=== PATIENT | female | born 1965 | race Caucasian/White ===

== ENCOUNTER 2022-02-01 19:11 | Inpatient (IN) | payer MEDICARE, OTHER ==
[~2022-02-01] VITALS: Ht 170.2 cm; Wt 62.1 kg
--- NOTE | 2022-02-01 19:14 | NUR ---
Dr. Denson examining patient at [facility].
[2022-02-01] MEDS ORDERED: VANCOMYCIN 1,000 MG in DEXTROSE 5% 250 ML IV ONE (19:20)
[2022-02-01] MEDS ORDERED: PIPERACILLIN/TAZOBACTAM 3.375 GM in DEXTROSE 5% 50 ML IV ONE (19:20)
[2022-02-01 19:25] VITALS: BP 100/60
[2022-02-01] MEDS ORDERED: fentaNYL citrate 0.05 MG/ML VIAL IVP ONE (19:25)
--- NOTE | 2022-02-01 19:30 | NUR ---
PT MOVED TO BED 10 VIA [facility]
--- NOTE | 2022-02-01 19:33 | NUR ---
BIBA to bed 10
[2022-02-01] MEDS ORDERED: VANCOMYCIN 1,000 MG VIAL ONE (19:42)
[2022-02-01] MEDS ORDERED: PIPERACILLIN/TAZOBACTAM 3.375 GM VIAL IV ONE (19:43)
--- NOTE | 2022-02-01 19:49 | NUR ---
FENTANYL GIVEN. PAIN 10
--- NOTE | 2022-02-01 19:50 | NUR ---
56 YO F BIBA from home c/o respiratory distress/difficulty breathing + nausea, vomiting dark black emesis x 3 days, diarrhea. pt sating at 96% on room air currently. Pt receives nightly dialysis, last treatment last night with unknown volume removed. BP 100 palpated PMH: renal disease, HTN, peritoneal dialysis with hypotension Meds: atorvastatin, ASA 81, cinacalcet, clopidogrel, calcium, folic acid, vitamin D3, B-complex, ducolax NKDA
--- NOTE | 2022-02-01 20:00 | NUR ---
C/O OF PAIN NO RELIF WITH FENTANYL
--- NOTE | 2022-02-01 20:01 | NUR ---
IV ABX STARTED
[2022-02-01] MEDS ORDERED: PANTOPRAZOLE 40 MG INJ VIAL IVP ONE (20:10)
[2022-02-01] MEDS ORDERED: HYDROmorphone PFS 2 MG/ML SYR IVP ONE (20:15)
[2022-02-01] MEDS ORDERED: ONDANSETRON 4 MG/2 ML VIAL ONE (20:25)
[2022-02-01] MEDS ORDERED: ONDANSETRON 4 MG/2 ML VIAL IVP ONE (20:30)
--- NOTE | 2022-02-01 21:00 | NUR ---
DILAUDID GIVEN PAIN 04/25
[2022-02-01 21:14] LABS: BASOPHILS % (AUTO) 0.4 % (0.0-2.0); EOSINOPHILS % (AUTO) 0.1 % (0.0-4.0); HEMATOCRIT 39.3 % (36-48); HEMOGLOBIN 12.9 g/dL (12.0-16.0); LYMPHOCYTES # (AUTO) 0.6 K/uL (2.5-16.5); LYMPHOCYTES % (AUTO) 6.2 % (20.5-51.1); MEAN CORPUSCULAR HEMOGLOBIN 28 pg (27-31); MEAN CORPUSCULAR HGB CONC 33 g/dL (33-37); MEAN CORPUSCULAR VOLUME 86.4 fL (80-94); MONOCYTES # (AUTO) 0.3 K/uL (0.8-1.0); NEUTROPHILS % (AUTO) 90.3 % (42.2-75.2); PLATELET COUNT (AUTO) 514 K/uL (140-450); RED BLOOD CELL COUNT(AUTO) 4.54 MIL/uL (4.20-5.40); RED CELL DISTRIBUTION WIDTH 15.7 % (11.6-13.7)
[2022-02-01 21:17] LABS: ALBUMIN 1.8 g/dL (3.4-5.0); ANION GAP 29.2 (8-16); ASPARTATE AMINOTRANSFERASE 10 U/L (15-37); CARBON DIOXIDE 15.6 mmol/L (21-32); CHLORIDE 93 mmol/L (98-107); GFR ARICAN-AMERICAN 3 mL/min (>90); GLUCOSE 200 mg/dL (74-106); SODIUM SERUM 135 mmol/L (136-145); TOTAL BILIRUBIN 0.6 mg/dL (0.0-1.0)
[2022-02-01 21:18] LABS: POTASSIUM 2.8 mmol/L (3.5-5.1)
[2022-02-01 21:20] LABS: CREATININE 14.4 mg/dL (0.6-1.3); UREA NITROGEN, BLOOD 86 mg/dL (7-18)
[2022-02-01 21:44] LABS: PROTHROMBIN TIME 11.4 secs (10.8-13.4)
--- NOTE | 2022-02-01 22:22 | NUR ---
PT POSITIONED FOR COMFORT. NO COMPLAINTS AT THIS TIME. PAIN 09/23
--- NOTE | 2022-02-01 23:23 | NUR ---
Critical values 2.8 potassium, 86 bun, 14.4 creatinine, lactic acid 3.3
[2022-02-01] MEDS ORDERED: ATOR10TA PO (23:37)
[2022-02-01] MEDS ORDERED: ASPI-1129 PO (23:37)
[2022-02-01] MEDS ORDERED: SEN30 PO (23:37)
[2022-02-01] MEDS ORDERED: [UNRECOGNIZED DRUG - CODE] PO (23:37)
[2022-02-01] MEDS ORDERED: CLOP75TA55 PO (23:37)
--- NOTE | 2022-02-01 23:59 | NUR ---
PT EXPRESSES NAUSEA BUT REFUSES ANTI-NAUSEA MEDICATION
[2022-02-02] VITALS (22 sets, daily range): BP systolic 56–189; BP diastolic 36–99
[2022-02-02] MEDS ORDERED: ONDANSETRON 4 MG/2 ML VIAL IM/IVP PRN
[2022-02-02] MEDS ORDERED: DOCUSATE SODIUM 100 MG GELCAP PO PRN
[2022-02-02] MEDS ORDERED: INSULIN LISPRO SLIDING SCALE 100 UNITS/ML VIAL SUBQ PRN
[2022-02-02] MEDS ORDERED: HYDROcodone/APAP 5/325 MG 1 TAB TAB PO PRN
[2022-02-02] MEDS ORDERED: DEXTROSE 50% 50 ML SYR IVP PRN
[2022-02-02] MEDS ORDERED: VANCOMYCIN PER PHARMACY MC PRN
[2022-02-02] MEDS ORDERED: POTASSIUM CHLORIDE 40 MEQ, LIDOCAINE MPF 1% 25 MG in NACL 0.9% 250 ML IV PRN ×3
[2022-02-02] MEDS ORDERED: ACETAMINOPHEN 325 MG TAB PO PRN
[2022-02-02] MEDS ORDERED: MAG SULF 2000 MG/WATER PREMIX 50 ML IV PRN
--- NOTE | 2022-02-02 00:50 | NUR ---
RECEIVED PT. FROM ER, AWAKE AND ABLE TO EXPRESS HER NEEDS. ON ROOM AIR. IV TO LEFT FOREARM WITH NO IVF RUNNING. SR ON MONITOR. LUNGS CLEAR. ABDOMEN SOFT, NON-TENDER. NO PAIN STATED AT THIS TIME. JUST WANT TO POSITION HER BACK AND SIT UP. PLACED HOB TO 90 DEGREES SHE REQUESTED. WILL DO ASSESSMENT.
--- NOTE | 2022-02-02 00:50 | NUR ---
Patient will be admitted to care of BRENDON. Admited to ICU. Will go to room 6. Report to COLLINS.
[2022-02-02] MEDS: DEXT 5% /NACL 0.9% 1,000 ML IV SCH ×2 (01:00→17:40)
--- NOTE | 2022-02-02 01:00 | NUR ---
CHECKED AND ASSESSED SKIN, TOOK A PICTURE OF WOUNDS AND CHANGED DRESSING.
[2022-02-02 01:31] LABS: MAGNESIUM 1.8 mg/dL (1.8-2.4); PHOSPHORUS 8.8 mg/dL (2.5-4.9)
--- NOTE | 2022-02-02 03:45 | NUR ---
PT. ZOSYN IVPB SCHEDULE FOR 0000 DOCUMENTED NOT GIVEN, DUE TO PT. IN ER DURING THAT TIME.
--- NOTE | 2022-02-02 04:00 | NUR ---
TAKEN PT. TEMP AND IT'S 90.8. PT. REFUSED TO COVER, WANTS TO SIT AT THE SIDE OF THE BED. WILL CONT. TO MONITOR.
--- NOTE | 2022-02-02 04:22 | NUR ---
LAB AT THE BEDSIDE FOR THE BLOOD DRAW.
[2022-02-02] MEDS: MORPHINE SULFATE 2 MG/ML SYR IVP PRN ×2 (04:38→10:51)
[2022-02-02 06:10] LABS: BASOPHILS # (AUTO) 0.1 K/uL (0.00-0.22); BASOPHILS % (AUTO) 0.2 % (0.0-2.0); EOSINOPHILS % (AUTO) 0.1 % (0.0-4.0); HEMATOCRIT 37.3 % (36-48); HEMOGLOBIN 11.8 g/dL (12.0-16.0); LYMPHOCYTES % (AUTO) 4.6 % (20.5-51.1); MEAN CORPUSCULAR HEMOGLOBIN 28 pg (27-31); MEAN CORPUSCULAR HGB CONC 32 g/dL (33-37); MEAN CORPUSCULAR VOLUME 87.2 fL (80-94); MONOCYTES # (AUTO) 0.7 K/uL (0.8-1.0); MONOCYTES % (AUTO) 3.1 % (1.7-9.3); NEUTROPHILS # (AUTO) 19.7 K/uL (1.8-7.7); PLATELET COUNT (AUTO) 468 K/uL (140-450); RED BLOOD CELL COUNT(AUTO) 4.28 MIL/uL (4.20-5.40); RED CELL DISTRIBUTION WIDTH 15.5 % (11.6-13.7); WHITE BLOOD COUNT (AUTO) 21.4 K/uL (4.8-10.8)
[2022-02-02] MEDS ORDERED: PIPERACILLIN/TAZOBACTAM 2.25 GM VIAL IV ONE (06:37)
[2022-02-02] MEDS: PIPERACILLIN/TAZOBACTAM 2.25 GM in DEXTROSE 5% 50 ML IV SCH ×5 (06:45→19:08)
[2022-02-02 06:50] LABS: ANION GAP 29.4 (8-16); CARBON DIOXIDE 15.6 mmol/L (21-32)
[2022-02-02 07:33] LABS: CREATININE 14.5 mg/dL (0.6-1.3)
--- NOTE | 2022-02-02 07:35 | NUR ---
RECEIVED PATIENT FROM MGMT CONSULTANT NURSE FOR CONTINUITY OF CARE. PT IS AOX2. RESPIRATIONS EVEN AND UNLABORED. ON ROOM AIR AND NO DISTRESS NOTED. SKIN IS WARM, DRY, AND INTACT. IV SITE ON LFA 22 G INFUSING FLUIDS ORDERED. ABD IS SOFT, FLAT, AND NON-DISTENDED. BOWEL SOUNDS ACTIVE IN ALL QUADRANT. HAS PERITONEAL DIALYSIS CATHETER IN PLACE. PLAN OF CARE DISCUSSED. SAFETY PRECAUTIONS IN PLACE. CALL LIGHT WITHIN REACH. WILL CONTINUE TO MONITOR.
--- NOTE | 2022-02-02 07:42 | NUR ---
ALL CARE ENDORSED TO DAY SHIFT RN FOR CONTINUITY OF CARE.
[2022-02-02] MEDS ORDERED: NOREPINEPHRINE 4 MG in DEXTROSE 5% 250 ML IV PRN (08:05)
[2022-02-02] MEDS: BLOOD GLUCOSE MONITORING 1 DEV DEV FS SCH ×4 (08:11→21:08)
--- NOTE | 2022-02-02 08:30 | NUR ---
ALL SCHEDULED MEDS GIVEN. PT IS STABLE. NO DISTRESS NOTED. WILL CONTINUE TO MONITOR.
--- NOTE | 2022-02-02 08:58 | NUR ---
PATIENT HAS BEEN SCREENED AND CATEGORIZED HIGH NUTRITION RISK. PATIENT WILL BE SEEN WITHIN 1-2 DAYS OF ADMISSION. / [address]
[2022-02-02] MEDS ORDERED: PANTOPRAZOLE 40 MG INJ VIAL IVP SCH (09:00)
--- NOTE | 2022-02-02 10:00 | NUR ---
DR. KIM AT PATIENT'S BEDSIDE.
--- NOTE | 2022-02-02 10:35 | NUR ---
DC PLANNING: THE PATIENT ADMITTED FROM HOME WITH C/O SEVERE ABDOMINAL PAIN AND SOB. H/O ESRD WITH PERITONEAL DYALYSIS, DM AND HTN. DIALYSATE NOTED AROUND THE PD CATHETER, DRESSING TO RIGHT LE WHICH APPEARED TO BE A TMA. WBC'S IN ED 10, TODAY SPIKED TO 21.4. CR. 14.4, TROPONIN 296, LACTIC ACID 3.3, ANION GAP 29.2.FINDINGS OF METABOLIC ACIDOSIS, POSSIBLE NSTEMI. CTA BD/PELVIS SHOWS PNEUMOPERITONEUM AND ASCITES, MESENTERIC EDEMA, COLONIC DIVERTICULOSIS. GIVEN ZOSYN, VANCO, FENTANYL, DILAUDID AND ZOFRAN IN ED, CONTINUED ON ZOSYN AND VANCO. ALSO ON LEVOPHED GTT AT 2-4 MCG, B/P 70/41. PATIENT WITH NOTED ALOC TODAY. ADY SPOKE WITH THE PATIENTS SONS ANTONIO AND SANTIAGO AT BEDSIDE WITH JOSE R KIM AND GERMAN. FAMILY WOULD LIKE PATIENT TRANSFERRED TO [facility], ORDER ENTERED BY DR PORTER, PACKET FAXED TO [facility], ADY IS FOLLOWING UP WITH [facility] BY PHONE. DR KIM EXPLAINED THAT HE WILL ORDER A CT WITH ORAL CONTRAST HE NEEDS TO EVALUATE FOR EXTRAVASATION, CT WILL DEPEND ON PATIENT ABILITY TO TAKE ORAL CONTRAST. DR KIM TOLD THE FAMILY THAT THE PATIENT MIGHT NEED URGENT SURGERY, DISCUSSED THE FACT THAT PATIENT YESTERDAY STATED SHE DIDN'T WANT SURGERY. CLARIFIED WITH MD AND SONS THAT PATIENT STATED SHE DIDN'T WANT SURGERY BUT DID NOT STATE THAT SHE DIDN'T WANT LIFE SAVING MEASURES. ADY EXPLAINED TO HER SONS THAT THEY CAN MAKE DECISIONS FOR THE PATIENT IF THEY ARE THE ONLY FAMILY AND THE PATIENT IS UNABLE TO MAKE DECISIONS. PATIENTS SON SANTIAGO IS THE PRIMARY CONTACT AND DECISION MAKER PER SANTIAGO AND HER SON ANTONIO, THEY WANT TO THINK ABOUT SURGERY AND ARE UNWILLING TO MAKE A DECISION UNTIL THEY KNOW IF [facility] WILL ACCEPT THE PATIENT. ADY WILL FOLLOW. Addendum: 02/02/22 at 1053 by Jocelynn Moncada CM DC PLANNING: CM SPOKE WITH THE PATIENTS MASSIMO HENDERSON WHO STATES HE HAS DPOA FOR THE PATIENT. CM WILL FOLLOW. Addendum: 02/02/22 at 1102 by Jocelynn Moncada CM DC PLANNING: ADY SPOKE WITH MARIA ELENA AT [facility], CLINICALS SENT BY ADY RECEIVED, CASE WILL BE REVIEWED BY [facility] CM AND POLITICAL GEOGRAPHER FOR TRANSFER. CM WILL FOLLOW.
[2022-02-02 10:57] LABS: BASOPHILS # (AUTO) 0.1 K/uL (0.00-0.22); BASOPHILS % (AUTO) 0.5 % (0.0-2.0); EOSINOPHILS % (AUTO) 0.1 % (0.0-4.0); HEMATOCRIT 37.7 % (36-48); HEMOGLOBIN 11.8 g/dL (12.0-16.0); LYMPHOCYTES # (AUTO) 1.3 K/uL (2.5-16.5); LYMPHOCYTES % (AUTO) 4.7 % (20.5-51.1); MEAN CORPUSCULAR HEMOGLOBIN 28 pg (27-31); MEAN CORPUSCULAR HGB CONC 31 g/dL (33-37); MEAN CORPUSCULAR VOLUME 87.6 fL (80-94); MONOCYTES # (AUTO) 0.4 K/uL (0.8-1.0); MONOCYTES % (AUTO) 1.4 % (1.7-9.3); NEUTROPHILS % (AUTO) 93.3 % (42.2-75.2); PLATELET COUNT (AUTO) 433 K/uL (140-450); RED BLOOD CELL COUNT(AUTO) 4.31 MIL/uL (4.20-5.40); RED CELL DISTRIBUTION WIDTH 15.7 % (11.6-13.7)
[2022-02-02 11:04] LABS: ANION GAP 32.3 (8-16); CARBON DIOXIDE 10.2 mmol/L (21-32); POTASSIUM 3.5 mmol/L (3.5-5.1)
[2022-02-02 11:06] LABS: WHITE BLOOD COUNT (AUTO) 28.9 K/uL (4.8-10.8)
[2022-02-02 11:16] LABS: CREATININE 14.5 mg/dL (0.6-1.3)
[2022-02-02] MEDS ORDERED: NACL 0.9% 500 ML IV SCH (11:55)
[2022-02-02] MEDS ORDERED: HYDROmorphone 1 MG/ML AMP IVP PRN (12:15)
[2022-02-02] MEDS ORDERED: ceFAZolin 1,000 MG VIAL IV SCH (12:20)
--- NOTE | 2022-02-02 13:30 | NUR ---
SPOKE TO ADY ROQUE FROM [facility]. THEY ARE NOT RECOMMENDING TRANSFER AT THIS TIME DUE TO UNSTABLE CONDITION. [facility] WILL FOLLOW BACK TOMORROW MORNING FOR PATIENT'S UPDATED CONDITION
[2022-02-02] MEDS: HYDROCORTISONE NA SUCC 100 MG/2 ML VIAL IV SCH ×2 (13:44→21:21)
--- NOTE | 2022-02-02 14:01 | NUR ---
REQUESTING PICC LINE PLACEMENT FOR PATIENT. ENDORSED TO BOTH PATIENT AND FAMILY. PATIENT REFUSED PLACEMENT. REFUSAL. EDUCATED THE PATIENT THE RISKS AND BENEFITS OF PLACING PICC LINE. PATIENT STILL DOES NOT WANT PICC LINE INSERTED. INFORMED MD AND IS AWARE OF THE SITUATION.
--- NOTE | 2022-02-02 16:00 | NUR ---
DIALYSIS NURSE INFUSED ANCEF AND FORTAZ
--- NOTE | 2022-02-02 16:20 | NUR ---
FOUND PATIENT UNRESPONSIVE. CALLED RAPID RESPONSE
--- NOTE | 2022-02-02 16:40 | NUR ---
RT AT BEDSIDE. INITIATED CPR AND CALLED A CODE BLUE
[2022-02-02] MEDS ORDERED: PROPOFOL 1000 MG/100 ML PREMIX 100 ML IV ONE (16:48)
--- NOTE | 2022-02-02 16:48 | NUR ---
20 ETOMIODATE AND 80 RECURONIUM WAS GIVEN. FLUSHED WITH SALINE.
--- NOTE | 2022-02-02 16:50 | NUR ---
PROPOFOL WAS STARTED AT 10 MCG/KG/MIN
--- NOTE | 2022-02-02 16:50 | NUR ---
INTUBATION WAS COMPLETED. 7.5 CM AND 24@ TEETH
--- NOTE | 2022-02-02 16:58 | NUR ---
PT INTUBATED BY ER PHYSICIAN WITH A 7.5 ETT SECURED @24 TEETH/GUM. BILATERAL COLOR CHANGE WITH CO2 DETECTOR. BILATERAL BREATH SOUNDS. WILL OBTAIN CXR.
--- NOTE | 2022-02-02 17:00 | NUR ---
CONTACTED ATTENDING MD AND FAMILY TO NOTIFY PATIENT CHANGE OF CONDITION. MD IS AWARE OF THE CONDITIONS AND NEW ORDERS WERE RECEIVED.
--- NOTE | 2022-02-02 17:04 | NUR ---
PT PLACED ON VENT, SETTINGS PER ER PHYSICIAN AC 20 VT 400, PEEP 10 AND FIO2 100%. ALARMS ON AND FUNCTIONING.
[2022-02-02] MEDS ORDERED: ALBUTEROL SULFATE/IPRATROPIU 3 ML SOL IH PRN (17:10)
[2022-02-02] MEDS ORDERED: PROPOFOL 1000 MG/100 ML PREMIX 100 ML IV PRN ×2 (17:10)
[2022-02-02] MEDS ORDERED: VASOPRESSIN 20 UNITS in NACL 0.9% 250 ML IV SCH (17:45)
[2022-02-02] MEDS ORDERED: SODIUM PHOSPHATE 15 MMOLE in NACL 0.9% 250 ML IV SCH (18:00)
--- NOTE | 2022-02-02 18:03 | NUR ---
PER ICU NURSE REQUESTS NEW VENT SETTINGS AC 24, VT 500, PEEP 8 AND FIO2 90%.
[2022-02-02] MEDS ORDERED: NOREPINEPHRINE 4 MG/4 ML VIAL IV ONE (18:23)
[2022-02-02] MEDS ORDERED: SODIUM BICARBONATE 8.4% PFS 50 MEQ/50 ML SYR IVP ONE (18:36)
[2022-02-02] MEDS: SODIUM BICARBONATE 8.4% 150 MEQ in DEXTROSE 5% 1,000 ML IV SCH (18:40)
[2022-02-02] MEDS ORDERED: SODIUM BICARBONATE 8.4% PFS 50 MEQ/50 ML SYR IVP SCH (18:40)
--- NOTE | 2022-02-02 19:00 | NUR ---
CONTACTED DR. PORTER AND DR. ERIC REGARDING PATIENT'S VS. NEW ORDERS WERE RECEIVED.
[2022-02-02] MEDS ORDERED: PHENYLEPHRINE 10 MG/ML VIAL ONE ×2 (19:09→19:10)
[2022-02-02] MEDS ORDERED: PHENYLEPHRINE 20 MG in NACL 0.9% 250 ML IV PRN (19:10)
[2022-02-02] MEDS: NOREPINEPHRINE 16 MG in DEXTROSE 5% 250 ML IV PRN (19:11)
--- NOTE | 2022-02-02 19:38 | NUR ---
ENDORSED TO CHIEF RISK OFFICER NURSE FOR CONTINUITY OF CARE. PT IS STABLE
--- NOTE | 2022-02-02 19:40 | NUR ---
RECEIVED REPORT FROM DAY SHIFT (NIYA THOMAS). PATIENT IS INTUBATED, SEDATED AND IS ON LEVOPHED RUNNING AT 30MCG/MIN CURRENT VENT SETTINGS AC/VC, RATE = 24, VT = 500, FIO2 = 90, PEEP = 8. TRANSMETATARSAL AMPUTATION (RIGHT) FAMILY IS AT BEDSIDE RIGHT IJ,TLC PERIPHERAL IV, RIGHT AC = 20G
--- NOTE | 2022-02-02 20:00 | NUR ---
SPOKE WITH PATIENT'S SON SANTIAGO TAYLOR, AT BEDSIDE. SON PRESENTED SIGNED AND NOTARIZED COPY OF ADVANCED DIRECTIVE. PER DOCUMENT, SANTIAGO (SON) HAS DPOA STATUS AND ALTERNATE AGENT IS PATIENT'S DTR-IN-LAW, ALLEN. SON HAS STATED THAT NO INFORMATION IS TO BE GIVEN TO ANY FAMILY MEMBERS ASIDE FROM HIMSELF AND HIS SPOUSE. COPY OF ADVANCED DIRECTIVE HAS BEEN PLACED IN CHART
[2022-02-02 20:13] LABS: APPEARANCE,URINE CLOUDY (CLEAR)
[2022-02-02 20:14] LABS: COLOR,URINE AMBER (YELLOW); LEUKOCYTE ESTERASE ,URINE 3+ (NEGATIVE); NITRITE, URINE POSITIVE (NEGATIVE)
[2022-02-02 20:16] LABS: BLOOD, URINE 3+ (NEGATIVE); PH,URINE 6.5 (5.0-9.0)
[2022-02-02 20:17] LABS: BILIRUBIN,URINE NEGATIVE (NEGATIVE); UGLUCOSE NEGATIVE (NEGATIVE)
[2022-02-02 20:29] LABS: RBC,URINE 50-80 /HPF (0-5); WAXY CASTS,URINE None Seen /LPF (None Seen); WBC,URINE 20-60 /HPF (0-5)
--- NOTE | 2022-02-02 21:08 | NUR ---
POC AT BEDSIDE; PATIENT REGISTERED AT 55. ADMINISTERED DEXTROSE 50%, AT 2109. WILL RECHECK SUGAR
--- NOTE | 2022-02-02 21:36 | NUR ---
BP = 144/73, HR = 106 LEVOPHED DECREASED TO 28MCG/MIN
--- NOTE | 2022-02-02 21:40 | NUR ---
RECHECKED SUGAR AT BEDSIDE; PATIENT NOW 118.
--- NOTE | 2022-02-02 22:30 | NUR ---
LAB DRAW FROM CENTRAL LINE. SAMPLE GIVEN TO NET C DEVELOPER
[2022-02-02 22:53] LABS: ANION GAP 32.3 (8-16); CARBON DIOXIDE 11.4 mmol/L (21-32); POTASSIUM 3.7 mmol/L (3.5-5.1)
[2022-02-02 22:55] LABS: CREATININE 12.6 mg/dL (0.6-1.3)
[2022-02-02 22:57] LABS: HEMATOCRIT 36.8 % (36-48); HEMOGLOBIN 11.5 g/dL (12.0-16.0); MEAN CORPUSCULAR HEMOGLOBIN 28 pg (27-31); MEAN CORPUSCULAR HGB CONC 31 g/dL (33-37); MEAN CORPUSCULAR VOLUME 27.5 fL (80-94); RED BLOOD CELL COUNT(AUTO) 4.17 MIL/uL (4.20-5.40); WHITE BLOOD COUNT (AUTO) 25.4 K/uL (4.8-10.8)
[2022-02-02 22:58] LABS: BASOPHILS % (AUTO) 0.1 % (0.0-2.0); EOSINOPHILS % (AUTO) 1.6 % (0.0-4.0); LYMPHOCYTES # (AUTO) 0.6 K/uL (2.5-16.5); LYMPHOCYTES % (AUTO) 2.5 % (20.5-51.1); MONOCYTES % (AUTO) 1.1 % (1.7-9.3); NEUTROPHILS # (AUTO) 24.1 K/uL (1.8-7.7); NEUTROPHILS % (AUTO) 94.7 % (42.2-75.2); PLATELET COUNT (AUTO) 429 K/uL (140-450); RED CELL DISTRIBUTION WIDTH 16.4 % (11.6-13.7)
[2022-02-02 22:59] LABS: EOSINOPHILS # (AUTO) 0.4 K/uL (0-0.4); MONOCYTES # (AUTO) 0.3 K/uL (0.8-1.0)
[2022-02-02] MEDS ORDERED: cefTRIAXone 2,000 MG in DEXTROSE 5% 100 ML IV SCH (23:25)
[2022-02-02] MEDS ORDERED: cefTRIAXone 2,000 MG VIAL ONE (23:34)
[2022-02-03] VITALS (13 sets, daily range): BP systolic 54–120; BP diastolic 34–77
[2022-02-03] MEDS: PIPERACILLIN/TAZOBACTAM 2.25 GM in DEXTROSE 5% 50 ML IV SCH ×2 (00:24→06:26)
--- NOTE | 2022-02-03 00:35 | NUR ---
ABG RESULTS WERE GIVING TO DR. NUÑEZ. NO CHANGES MADE AT THIS TIME.
--- NOTE | 2022-02-03 00:51 | NUR ---
RT AT BEDSIDE; VENT SETTINGS ADJUSTED, PATIENT NOW WITH FIO2 = 60%
--- NOTE | 2022-02-03 02:20 | NUR ---
BP = 91/63, HR = 119 LEVOPHED INCREASED TO 30MCG/MIN
--- NOTE | 2022-02-03 03:55 | NUR ---
BLOOD PRESSURE DROPPED TO 52/39, HR = 40'S, NO PULSE APPRECIATED, CPR STARTED, CALLED FOR EMMETT SIDDIQUI.
--- NOTE | 2022-02-03 03:55 | NUR ---
RESPONDED TO CODE BLUE. SEE CODE BLUE SHEET FOR DETAILS.
--- NOTE | 2022-02-03 04:05 | NUR ---
PER DR. AVERY (ER). SET RESPIRATORY RATE WAS INCREASED TO 30 AND ABG WAS ORDERED AND COLLECTED.
[2022-02-03] MEDS ORDERED: NOREPINEPHRINE 4 MG/4 ML VIAL IV ONE (04:08)
--- NOTE | 2022-02-03 04:20 | NUR ---
CRITICAL ABG RESULTS WERE GIVEN TO DR. AVERY. READ BACK CONFIRMED. NO CHANGES MADE AT THIS TIME.
[2022-02-03] MEDS ORDERED: SODIUM BICARBONATE 4.2% 5 MEQ/10 ML SYR IV SCH (04:30)
[2022-02-03] MEDS: NOREPINEPHRINE 16 MG in DEXTROSE 5% 250 ML IV PRN (04:41)
[2022-02-03] MEDS: HYDROCORTISONE NA SUCC 100 MG/2 ML VIAL IV SCH (05:02)
[2022-02-03] MEDS: SODIUM BICARBONATE 8.4% 150 MEQ in DEXTROSE 5% 1,000 ML IV SCH (05:10)
[2022-02-03] MEDS ORDERED: NACL 0.9% 500 ML IV SCH (06:00)
--- NOTE | 2022-02-03 07:20 | NUR ---
RECEIVED PT NON VERBAL, SKIN ASHEN COLORED. PUPILS FIXED AND NON REACTIVE TO LIGHT. ET TUBE TO VENT SETTINGS AC VC VT 500 RATE 30 PEEP 8 FIO2@60%. SINUS TACH ON MONITOR. OG-TUBE TO INTERMITTENT SUCTION. GAINES CATHETER INTACT TO BSD WITH NO OUTPUT. RIGHT IJ INTACT INFUSING LEVOPHED @ 30MCG/MIN, VASOPRESSIN @ 0.03 UNITS/MIN, AND ROME-SYNEPHRINE @ 150MCG/KG/MIN. PERIPHERAL IV 20 GAUGE ON RIGHT AC INTACT AND INFUSING SODIUM BICARB WITH DEXTROSE @ 100ML/HR. PT WITH BLUISH COLORED EXTREMITIES. ANANT HUGGER IN PLACE.
[2022-02-03] MEDS: BLOOD GLUCOSE MONITORING 1 DEV DEV FS SCH (07:30)
--- NOTE | 2022-02-03 07:33 | NUR ---
CARE OF PATIENT ENDORSED TO DAY SHIFT (NIYA GOLDSTEIN)
[2022-02-03 07:35] LABS: HEMATOCRIT 33.1 % (36-48); HEMOGLOBIN 10.3 g/dL (12.0-16.0); MEAN CORPUSCULAR HEMOGLOBIN 27 pg (27-31); MEAN CORPUSCULAR VOLUME 87.7 fL (80-94); RED BLOOD CELL COUNT(AUTO) 3.77 MIL/uL (4.20-5.40); WHITE BLOOD COUNT (AUTO) 21.7 K/uL (4.8-10.8)
[2022-02-03 07:36] LABS: BASOPHILS % (AUTO) 0.2 % (0.0-2.0); EOSINOPHILS # (AUTO) 0.5 K/uL (0-0.4); EOSINOPHILS % (AUTO) 2.2 % (0.0-4.0); LYMPHOCYTES # (AUTO) 0.6 K/uL (2.5-16.5); MEAN CORPUSCULAR HGB CONC 31 g/dL (33-37); MONOCYTES # (AUTO) 0.3 K/uL (0.8-1.0); MONOCYTES % (AUTO) 1.4 % (1.7-9.3); NEUTROPHILS # (AUTO) 20.2 K/uL (1.8-7.7); NEUTROPHILS % (AUTO) 93.2 % (42.2-75.2); PLATELET COUNT (AUTO) 343 K/uL (140-450); RED CELL DISTRIBUTION WIDTH 16.2 % (11.6-13.7)
--- NOTE | 2022-02-03 07:45 | NUR ---
UPDATED DR ERIC REGARDING PT CONDITION. NEW ORDERS RECEIVED.
--- NOTE | 2022-02-03 07:50 | NUR ---
CALLED DR. KIM'S OFFICE TO GIVE UPDATE ON PT. NO ANSWER. LEFT A VOICEMAIL WITH CALL BACK NUMBER.
--- NOTE | 2022-02-03 07:50 | NUR ---
REC'D PT ON VENTILATOR WITH ETT SECURE AND INTACT. VENTILATOR PLUGGED INTO RED OUTLET, FLOW METER AND BVM AT BEDSIDE.
[2022-02-03] MEDS ORDERED: EPINEPHrine 1 mg/mL 3 MG in DEXTROSE 5% 250 ML IV PRN (08:00)
--- NOTE | 2022-02-03 08:03 | NUR ---
DR. PORTER AT BEDSIDE SPEAKING WITH SON SANTIAGO Hahn
[2022-02-03] MEDS ORDERED: SODIUM BICARBONATE 8.4% PFS 50 MEQ/50 ML SYR IVP SCH (08:05)
--- NOTE | 2022-02-03 08:14 | NUR ---
AT BEDSIDE AND HR DROPPED AND RHYTHM BECAME STRAIGHT LINE. CHECKED PULSE AND NO PULSE. CALLED CODE BLUE. PLEASE REVIEW CODE SHEET.
--- NOTE | 2022-02-03 08:30 | NUR ---
RESPONDED TO CODE BLUE, ACLS PROTOCOLS, PT WAS VENTILATED VIA BVM DURING CODE BLUE, FOLLOWED BY ROSC. PT WAS PLACED BACK ON VENTILATOR. SEE CODE SHEET FOR MORE DETAILS.
--- NOTE | 2022-02-03 08:53 | NUR ---
PT. HEART RATE DROPPED AND FLAT LINE ON MONITOR. CALLED CODE. DR. PORTER AT BEDSIDE WITH SON SANTIAGO. CODE STATUS CHANGED TO DNR. CODE BLUE CANCELLED.
[2022-02-03] MEDS ORDERED: PANTOPRAZOLE 40 MG INJ VIAL IVP SCH (09:00)
--- NOTE | 2022-02-03 09:03 | NUR ---
DR. PORTER PRONOUNCED TIME OF @ 0911.
--- NOTE | 2022-02-03 09:50 | NUR ---
CALLED [facility] AND SPOKE TO RINA. REFERRAL NUMBER: [id number].
--- NOTE | 2022-02-03 10:25 | NUR ---
SPOKE TO MELE FROM [facility]. PER MELE, THEY WILL NOT BE PURSING CASE. REFERENCE #: [id number].
--- NOTE | 2022-02-03 10:52 | NUR ---
SPOKE TO LUIS FELIPE MARIEE FROM [facility]. PER LUIS FELIPE, NOT A [facility]S CASE AND NO CASE NUMBER. MAY RELEASE BODY TO MORTUARY.
[2022-02-03] MEDS ORDERED: VANCOMYCIN HCL 750 MG in NACL 0.9% 250 ML IV SCH (11:00)
--- NOTE | 2022-02-03 14:44 | NUR ---
BODY PICKED UP AND HOME MEDS RELEASED TO LAURA FROM [facility]NOTE 3[facility] HOME.
== END 2022-02-03 14:51 | DRG 871 ==
LOC: MED 19:11 → MIC 22:32 → EDBD 22:32
PROVIDERS: ADMIT Hospitalist; ATTEND Hospitalist
PROC: 5A0935A Assistance with Respiratory Ventilation, Less than 24 Consecutive Hours, High Flow/Velocity Cannula (ICD-10-PCS; 2022-02-01)
PROC: 02HV33Z Insertion of Infusion Device into Superior Vena Cava, Percutaneous Approach (ICD-10-PCS; principal; 2022-02-02)
PROC: B548ZZA Ultrasonography of Superior Vena Cava, Guidance (ICD-10-PCS; 2022-02-02)
PROC: 5A12012 Performance of Cardiac Output, Single, Manual (ICD-10-PCS; 2022-02-02)
PROC: 0BH17EZ Insertion of Endotracheal Airway into Trachea, Via Natural or Artificial Opening (ICD-10-PCS; 2022-02-02)
PROC: 5A1935Z Respiratory Ventilation, Less than 24 Consecutive Hours (ICD-10-PCS; 2022-02-02)
PROC: 3E1M39Z Irrigation of Peritoneal Cavity using Dialysate, Percutaneous Approach (ICD-10-PCS; 2022-02-02)
PROC: 5A12012 Performance of Cardiac Output, Single, Manual (ICD-10-PCS; 2022-02-03)
DX: A41.9 Sepsis, unspecified organism (principal); E43 Unspecified severe protein-calorie malnutrition; N18.6 End stage renal disease; R65.21 Severe sepsis with septic shock; K65.9 Peritonitis, unspecified; G93.41 Metabolic encephalopathy; I12.0 Hypertensive chronic kidney disease with stage 5 chronic kidney disease or end stage renal disease; E87.1 Hypo-osmolality and hyponatremia; E11.22 Type 2 diabetes mellitus with diabetic chronic kidney disease; E87.6 Hypokalemia; E83.51 Hypocalcemia; E83.39 Other disorders of phosphorus metabolism; K57.90 Diverticulosis of intestine, part unspecified, without perforation or abscess without bleeding; E11.51 Type 2 diabetes mellitus with diabetic peripheral angiopathy without gangrene; Z20.822 Contact with and (suspected) exposure to COVID-19; I46.9 Cardiac arrest, cause unspecified; Z90.49 Acquired absence of other specified parts of digestive tract; Z90.710 Acquired absence of both cervix and uterus; Z79.82 Long term (current) use of aspirin; Z79.899 Other long term (current) drug therapy; Z88.6 Allergy status to analgesic agent; Z88.8 Allergy status to other drugs, medicaments and biological substances; Z99.2 Dependence on renal dialysis; Z68.21 Body mass index [BMI] 21.0-21.9, adult
CPT/HCPCS: 36415; 36600; 71045; 74160; 80048; 80053; 80202; 81001; 82150; 82803; 82945; 82948; 83036; 83605; 83690; 83735; 84100; 84157; 84484; 85025; 85610; 85730; 86886; 86900; 86901; 87040; 87070; 87075; 87081; 87205; 87635-QW; 89051; 89220; 92950; 93005; 94002; 94003; 96365; 96366; 96367; 99291; C9113; J0171; J0690; J0696; J0713; J1170; J1644; J1720; J1815; J2001; J2270; J2370; J2405; J2543; J2704; J3010; J3370; J3480; J3490; J7030; J7060; Q0092